=== PATIENT | male | born 1935 ===

== ENCOUNTER 2018-01-18 10:10 | Outpatient (CLI) | payer OTHER ==
[~2018-01-18] VITALS: Ht 165.1 cm; Wt 68.0 kg
== END 2018-01-18 10:30 | disposition home or self-care (01) ==
LOC: OFIC 805 10:10
DX: K21.9 Gastro-esophageal reflux disease without esophagitis (principal); J30.89 Other allergic rhinitis; J39.2 Other diseases of pharynx

== ENCOUNTER 2018-01-24 16:07 | Outpatient (CLI) | payer OTHER ==
[~2018-01-24] VITALS: Ht 152.4 cm; Wt 68.0 kg
== END 2018-01-24 16:20 | disposition home or self-care (01) ==
LOC: OFIC 805 16:07
DX: E04.1 Nontoxic single thyroid nodule (principal); R22.1 Localized swelling, mass and lump, neck

== ENCOUNTER 2018-05-10 11:15 | Outpatient (CLI) | payer OTHER ==
[~2018-05-10] VITALS: Ht 152.4 cm; Wt 68.0 kg
== END 2018-05-10 11:30 | disposition home or self-care (01) ==
LOC: OFIC 805 11:15
DX: J31.0 Chronic rhinitis (principal); E04.1 Nontoxic single thyroid nodule; R07.0 Pain in throat; K21.0 Gastro-esophageal reflux disease with esophagitis